=== PATIENT | male | born 1935 | race Caucasian/White ===

== ENCOUNTER 2020-12-26 10:23 | Inpatient (IN) | payer OTHER ==
[~2020-12-26] VITALS: Ht 172.7 cm; Wt 62.6 kg
[~2020-12-26 10:23] MED LIST: TRAMADOL HCL50 MG PO
[2020-12-26] MEDS ORDERED: METFORMIN HCL500 MG (10:37)
[2020-12-26] MEDS ORDERED: LIPITOR40 MG PO (10:38)
[2020-12-26] MEDS ORDERED: TOPROL XL25 M1 PO (10:38)
[2020-12-26] MEDS ORDERED: GLIPIZIDE XL10 MG PO (10:38)
--- NOTE | 2020-12-26 10:38 | NUR ---
SE RECIBE PTE ALERTA, ORIENTADO EN JEANINE ISAURO ESFERAS. PTE REFIERE SENTIR VENAS DEL DEREK CON LANG PALPITACIONES DESDE HACEN DOS MILLER.
--- NOTE | 2020-12-26 11:13 | NUR ---
PACIENTE EVALUADA POR EL MEDICO EN [place], SE LE STEFAN LAS MUETRAS DE V[place], SE LE ADMINISTRA LOS MEDICAMENTOS Y SE CANALIZA DAVE LAS ORDEN MEDICAS.
--- NOTE | 2020-12-26 14:52 | NUR ---
SE LE REALIZA TROPINAS, DAVE LAS ORDEN MEDICA.
--- NOTE | 2020-12-26 17:37 | NUR ---
PTE MASCULINO ALERTA Y ORIENTADO EN LAS ISAURO ESFERAS ES RE-EVALUADO POR . SE ORIENTA PTE Y FAMILIAR SOBRE ORDENES DE [place] REFIERE COMPRENDER. SE UBICA PTE EN CAMA #18 DE UNIDAD DE CHESTPAIN DAVE ORDEN MEDICA. SE CONECTA A MONITOR CARDIACO Y OXIMETRIA DE PULSO CONTINUA. SE EXTRAEN MUESTRAS DE LABORATORIO Y SE CANALIZA VENA BAJO MEDIDAS ASEPTICAS. SE ADMINISTRAN MEDICAMENTOS, BAJO MEDIDAS ASEPTICAS. PENDIENTE CONSULTAS CON MEDICINA INTERNA Y CARDIOLOGIA YA NOTIFICADAS, LABS A LAS 8PM. SE ENTREGA PTE A .
--- NOTE | 2020-12-26 18:02 | NUR ---
SE RECIBE PACIENTE MASCULINO DE 85 ANOS DE EDAD DESPIERTO Y ALERTA. SE ORIENTA SOBRE PROTOCOLO DE UNIDAD DE CHEST PAIN. SE ORIENTA SOBRE MEDICAMENTOS ORDENADOS Y ORDENES MEDICAS PENDIENTE. PACIENTE REFIERE ENTENDER. SE MANTIENE PACIENTE EN OBSERVACION POR CAMBIOS SIGNIFICATIVOS DENTRO DE GIRON CONDICION
--- NOTE | 2020-12-27 00:01 | NUR ---
PACIENTE EN CAMA #18 AREA DE CHEST PAIN. SE OFRECE WILLY PARA EVALUAR CONDICION Y ORIENTAR DE CONTINUIDAD DE TRATAMIENTO. PACIENTE ALERTA Y ORIENTADO POR ISAURO. IVF'S PATENTES EN MANO IZQ ANGIO #18 BAJANDO TRIDIL A 5MLS/HR Y MEDHAT H/L ANGIO #18 AMBAS AREAS LIBRES DE EDEMA Y/O ERITEMA.CANULA NASAL A 3 LITROS. PACIENTE CONECTADO A MONITOR CARDIACO Y SATUROMETRO. PENDIENTE CONSULTAS CON CARDIOLOGO DR Luci COLIN Y CON MEDICINA INTERNA DR JONATHAN PINON. SE MIDEN Y DOCUMENTAN S/V. FAMILIAR (HIJA) REFIERE QUE PACIENTE PARA DORMIR UTILIZA XANAX 2MG. SE CONSULTA A DR RODRÍGUEZ JAVAN INDICA QUE SE LE PUEDE ADMINISTRAR LA PASTILLA XANAX QUE LE TRAJO ESTA.HIJA ADMOINISTRA MEDICAMENTO, PACIENTE WING DE COMPLICACIONE.SE CONTINUA MONITOREANDO POR CAMBIOS SIGNIFICATIVOS. BARANDAS ELEVADAS POR GIRON SEGURIDAD.
--- NOTE | 2020-12-27 10:04 | NUR ---
SE RECIBE PTE ALERTA Y ORIENTADO EN JEANINE ISAURO ESFERAS. EN CAMA #18 EN CHEST PAIN, CON BARANDAS ELEVADAS Y CAMA BAJA POR SEGURIDAD. SE OBSERVA CONECTADO A MONITOR CARDIACO CON UN HR 89 POR MIN, CON CANULA NASAL A 2 LITROS. CANALIZADO EN BRAZO LT CON ANGIO #18. AREA DE VENOPUNCION WING DE EDEMA Y ERITEMA. PTE CON TRIDIL BAJANDO A 5 ML/HR. SE REALIZA DXT 76 MG/DL. SE MANTIENE BAJO OBSERVACION POR SIGNIFICATIVOS.
[2021-01-02] MEDS ORDERED: ELIQUIS2.5 MG PO (15:29)
[2021-01-02] MEDS ORDERED: LIPITOR40 MG PO (15:29)
[2021-01-02] MEDS ORDERED: TOPROL XL25 M1 PO (15:29)
[2021-01-02] MEDS ORDERED: LOSARTAN POTASS50 MG PO (15:29)
[2021-01-02] MEDS ORDERED: GLIPIZIDE XL10 MG PO (15:29)
[2021-01-02] MEDS ORDERED: METFORMIN HCL500 MG PO (15:29)
[2021-01-02] MEDS ORDERED: LEVOTHYROXINE25 MCG PO (15:29)
[2021-01-02] MEDS ORDERED: FAMOTIDINE20 MG PO (15:29)
[2021-01-02] MEDS ORDERED: ALPRAZOLAM1 MG PO (15:29)
== END 2021-01-02 16:40 | disposition home or self-care (01) | DRG 68 ==
LOC: ER 10:23 → MEDI 12-27 12:01
PROVIDERS: ADMIT Internal Medicine; ATTEND Internal Medicine
PROC: 4A02XM4 Measurement of Cardiac Total Activity, External Approach (ICD-10-PCS; principal; 2020-12-31)
DX: I65.23 Occlusion and stenosis of bilateral carotid arteries (principal); R22.1 Localized swelling, mass and lump, neck; R00.2 Palpitations; I10 Essential (primary) hypertension; E03.8 Other specified hypothyroidism; I48.91 Unspecified atrial fibrillation; Z79.4 Long term (current) use of insulin; Z20.822 Contact with and (suspected) exposure to COVID-19; C61 Malignant neoplasm of prostate; E11.65 Type 2 diabetes mellitus with hyperglycemia

== ENCOUNTER 2021-04-19 14:27 | Inpatient (IN) | payer OTHER ==
[~2021-04-19] VITALS: Ht 172.7 cm; Wt 72.6 kg
[~2021-04-19 14:27] MED LIST changes: +ALPRAZOLAM1 MG PO; +ELIQUIS2.5 MG PO; +FAMOTIDINE20 MG PO; +GLIPIZIDE XL10 MG PO; +LEVOTHYROXINE25 MCG PO; +LIPITOR40 MG PO; +LOSARTAN POTASS50 MG PO; +METFORMIN HCL500 MG; +METFORMIN HCL500 MG PO; +TOPROL XL25 M1 PO
== END 2021-04-24 15:18 | disposition home or self-care (01) | DRG 292 ==
LOC: ER 14:27 → SURG 19:39 → SEC-K 19:39 → SURG 22:44 → MEDI 04-21 16:47
PROVIDERS: ADMIT Internal Medicine; ATTEND Internal Medicine
PROC: B24BZZZ Ultrasonography of Heart with Aorta (ICD-10-PCS; principal; 2021-04-20)
PROC: 4A12X4Z Monitoring of Cardiac Electrical Activity, External Approach (ICD-10-PCS; 2021-04-20)
DX: I50.23 Acute on chronic systolic (congestive) heart failure (principal); J90 Pleural effusion, not elsewhere classified; Z20.822 Contact with and (suspected) exposure to COVID-19; R60.0 Localized edema; I65.23 Occlusion and stenosis of bilateral carotid arteries; Z78.9 Other specified health status; E11.9 Type 2 diabetes mellitus without complications; Z79.4 Long term (current) use of insulin; I07.1 Rheumatic tricuspid insufficiency; I48.91 Unspecified atrial fibrillation; E03.8 Other specified hypothyroidism; I11.0 Hypertensive heart disease with heart failure

== ENCOUNTER 2022-06-06 06:25 | Inpatient (IN) | payer OTHER ==
[~2022-06-06] VITALS: Ht 162.6 cm; Wt 63.5 kg
--- NOTE | 2022-06-06 06:32 | NUR ---
PTE ALERTA Y ORIENTADO X3 EN AMBULANCIA EN COMPANIA DE PARAMEDICOS.PARAMEDICOS REFIEREN QUE LOS LLAMARON POR HYPOGLUCEMIA DXT EN 35. PARAMEDICOS REFIERE QUE CANALIZARON AL PTE EN MANO IZQUIERDA ANGIO #20 Y ADMINISTRARON DW5/500ML. PTE AL MOMENTO DE LLEGADA DXT EN 72. SE STEFAN S/V Y SE UBICA EN ADRIANNA CON BARANDAS ELEVADAS.
--- NOTE | 2022-06-06 07:45 | NUR ---
SE LE ORIENTA A PACIENTE SOBRE LAS ORDENES MEDICAS, REFIERE ENTEDER LAS MISMAS. SE CANALIZA Y SE LE COLOCA LOS IVF'S Y SE LE STEFAN LAS MUETRAS DAVE LAS ORDENES MEDICAS.
--- NOTE | 2022-06-06 09:23 | NUR ---
SE LE REALIZA DXT A PTE LA CUAL DA 61 MG DL SE LE NOTIFICA A EL , ANGELA LA CUAL ORDENA TRATAMIENTO LA CUAL SE EJECUTA POR ,MS.LOPEZ BERUMEN SE MANTNEIEN BAJO OBSERVACION.
--- NOTE | 2022-06-06 15:29 | NUR ---
SE RECIBE PTE MASCULINO ALERTA Y ORIENTADO EN LAS ISAURO ESFERAS DEL TUR[place] ANTERIOR. SE OBSERVA CON BUEN PATRON RESPIRATORIO Y SIN QUEJA DE DOLOR. CONECTADO A MONITOR CARDIACO Y OXIMETRIA DE PULSO. VENOPUNCION PATENTE, WING DE EDEMA Y ERITEMA RECIBIENDO TERAPIA DE IVFS D5W+0.45NSS BAJANDO A 80ML/HR.SE OBSERVA CON SONDA URINARIA A GRAVEDAD DRENANDO EGRESO DE ORINA COLOR AMARILLO KEITH CON APROXIMADAMENTE 50ML. PTE EN CAMA NIVEL MAS BAJO CON BARANDAS ELEVADAS Y FRENOS COLOCADOS POR SEGURIDAD.PENDIENTE CONSULTA COON MEDICINA INTERNA.
[2022-06-08] MEDS ORDERED: SIMVASTATIN20 MG (09:17)
[2022-06-08] MEDS ORDERED: METFORMIN HCL1000 M3 (09:17)
[2022-06-08] MEDS ORDERED: FUROSEMIDE20 MG (09:17)
[2022-06-08] MEDS ORDERED: GABAPENTIN300 M2 (09:18)
== END 2022-06-10 08:34 | disposition expired | DRG 682 ==
LOC: ER 06:25 → ICU-2 17:56 → ICU 20:43
PROVIDERS: ADMIT Internal Medicine; ATTEND Internal Medicine
PROC: 4A033R1 Measurement of Arterial Saturation, Peripheral, Percutaneous Approach (ICD-10-PCS; principal; 2022-06-06)
PROC: BB24ZZZ Computerized Tomography (CT Scan) of Bilateral Lungs (ICD-10-PCS; 2022-06-06)
PROC: BT43ZZZ Ultrasonography of Bilateral Kidneys (ICD-10-PCS; 2022-06-06)
PROC: BW4GZZZ Ultrasonography of Pelvic Region (ICD-10-PCS; 2022-06-06)
PROC: B246ZZZ Ultrasonography of Right and Left Heart (ICD-10-PCS; 2022-06-06)
PROC: 06HY33Z Insertion of Infusion Device into Lower Vein, Percutaneous Approach (ICD-10-PCS; 2022-06-08)
PROC: 5A1D70Z Performance of Urinary Filtration, Intermittent, Less than 6 Hours Per Day (ICD-10-PCS; 2022-06-08)
PROC: 02H633Z Insertion of Infusion Device into Right Atrium, Percutaneous Approach (ICD-10-PCS; 2022-06-09)
PROC: 5A1D70Z Performance of Urinary Filtration, Intermittent, Less than 6 Hours Per Day (ICD-10-PCS; 2022-06-09)
DX: N17.9 Acute kidney failure, unspecified (principal); J12.82 Pneumonia due to coronavirus disease 2019; U07.1 COVID-19; Z53.1 Procedure and treatment not carried out because of patient's decision for reasons of belief and group pressure; I11.0 Hypertensive heart disease with heart failure; I50.9 Heart failure, unspecified; I27.21 Secondary pulmonary arterial hypertension; E86.0 Dehydration; E11.649 Type 2 diabetes mellitus with hypoglycemia without coma; Z66 Do not resuscitate; I34.0 Nonrheumatic mitral (valve) insufficiency; I07.1 Rheumatic tricuspid insufficiency